=== PATIENT | male | born 1975 | race Caucasian/White ===

== ENCOUNTER 2023-10-03 17:25 | Observation (INO) ==
--- NOTE | 2023-10-03 17:33 | ED Triage Note ---
Date of Service October 03, 2023 Provider in Triage Author: Sari Danielle History of Present Illness This patient was briefly evaluated while in triage. An abbreviated physical exam was performed. This patient is a 47-year-old Male who presents to the ED for evaluation of "I have a pain in the center of my chest, right above my breast bone." Started this morning, went away in the afternoon. Was more dull. Worsened while walking the dog this afternoon "pretty significantly." Does have history of HLD, +family history of PR in father at age 55. Physical Exam VITALS: Vitals are noted on the nurse's note and reviewed by myself. GENERAL: This is a 47 year old male, in no acute distress, nondiaphoretic, well- developed well-nourished. SKIN: No obvious rashes, edema, erythema HEAD: Normocephalic atraumatic. EYES: Conjunctivae without injection, sclerae without icterus. NECK: No JVD. LUNGS: No retractions or accessory muscle use. MUSCULOSKELETAL: Normal gait. NEURO: Patient was alert and oriented to person place and time. No focal neurological deficits. Initial orders for labs and / or imaging were placed and patient was placed in the waiting area until a bed is available. Please see further documentation for the full ED course.
[2023-10-03 18:04] LABS: Basophils # (auto) 0.05 K/uL (0.00-0.20); Basophils % (auto) 0.6 %; Eosinophils # (auto) 0.19 K/uL (0.00-0.50); Eosinophils % (auto) 2.3 %; Hematocrit (blood only) 43.9 % (42.0-52.0); Hemoglobin 14.6 g/dl (14.0-18.0); Immature Granulocytes # (auto) 0.03 K/uL (0.01-0.20); Immature Granulocytes % (auto) 0.4 %; Lymphocytes # (auto) 1.43 K/uL (1.20-3.40); Lymphocytes % (auto) 17.4 %; Mean Corpuscular Hemoglobin 29.1 pg (25.0-34.0); Mean Corpuscular Hgb Conc 33.3 g/dL (32.0-36.0); Mean Corpuscular Volume 87.6 fL (80.0-100.0); Mean Platelet Volume 9.8 fL (9.4-12.4); Monocytes # (auto) 0.61 K/uL (0.11-0.59); Monocytes % (auto) 7.4 %; Neutrophils # (auto) 5.91 K/uL (1.40-6.50); Neutrophils % (auto) 71.9 %; Platelet Count 279 K/uL (130-400); RDW Coefficient of Variation 12.1 % (11.5-14.5); RDW Standard Deviation 38.5 fL (36.4-46.3); Red Blood Count 5.01 M/uL (4.70-6.10); White Blood Count 8.22 K/ul (4.8-10.8)
--- NOTE | 2023-10-03 18:23 | XRay Report ---
SINGLE VIEW CHEST CLINICAL HISTORY: Atypical chest pain FINDINGS: A PA chest radiograph is compared to study dated 09/12/2018. The cardiomediastinal silhouett e is unremarkable. The lungs and pleural spaces are clear. No pneumothorax is seen. The bony thorax i s grossly intact. IMPRESSION: No active disease in the chest. ACT 112: Negative or not required by law. Electronically signed by: Jim Gutierrez M.D. 10/03/2023 6:22 PM
[2023-10-03 18:28] LABS: INR 0.9 (0.9-1.1); Partial Thromboplastin Time 28 Seconds (21-31); Prothrombin Time 10.3 Seconds (9.0-12.0)
[2023-10-03 18:35] LABS: Alanine Aminotransferase 25 U/L (7-52); Albumin Globulin Ratio 1.5 (0.9-2); Albumin Level 4.3 gm/dl (3.4-5.0); Alkaline Phosphatase 76 U/L (34-104); Anion Gap 2 (3-11); Aspartate Aminotransferase 22 U/L (13-39); BUN Creatinine Ratio 10.7 (10-20); Bilirubin,Total 0.5 mg/dl (0.2-1.0); Blood Urea Nitrogen 12 mg/dl (6-23); Calcium 8.8 mg/dl (8.6-10.3); Carbon Dioxide 28 mmol/L (21-32); Chloride 106 mmol/L (98-107); Est GFR (African American) 90.2 ml/min; Est GFR (Non-African American) 77.8 ml/min; Globulin 2.8 gm/dl (2.5-4.0); Glucose 96 mg/dl (70-99(Fasting)); Lipase 14 U/L (11-82); Potassium 3.7 mmol/L (3.5-5.1); Sodium 136 mmol/L (136-145); Total Protein 7.1 gm/dl (6.0-8.3)
[2023-10-03 18:43] LABS: Troponin I High Sensitivity < 2.3 pg/ml (0-20)
[2023-10-03] MEDS: ASPIRIN CHEW 324 MG ONE (20:15)
[2023-10-03] MEDS: ASPIRIN CHEW 324 MG PO STA (20:15)
[2023-10-03] MEDS: SODIUM CHLORIDE 0.9% 1,000 ML IV STA (20:16)
--- NOTE | 2023-10-03 20:16 | Emergency Department Note ---
Impression & Plan Atypical chest pain, ST segment depression ED Provider Note NAME: LISSA NESBITT AGE: 47 SEX: M : 1975 ARRIVES VIA: Walk-In INFORMANT: Patient, ED PROVIDER(S): José Scherer MD CHIEF COMPLAINT: Chest pain MEDICAL DECISION MAKING: Patient presents due to concern for chest pain that occurred earlier today improved and then worsened with exertion while walking the dog. IV was established and blood work was obtained. Patient was initially seen in the waiting area as there were no beds in which the patient will be seen. Patient's blood work shows a normal white count H&H and platelet count. Kidney function is unremarkable with normal electrolytes and LFTs. Troponin is not detectable patient's EKG may have some subtle changes including some ST depressions in the lateral leads as well as inferiorly which appear new from comparison from September 12, 2018. No other priors for comparison. The patient also relates that his father had a prior WY in his 50s and given that he is 47 do believe that it warrants additional monitoring observation and possible stress echocardiogram in the morning. Patient is currently agreeable plan of care. I did speak with the on-call hospitalist and the patient was admitted to the medicine service. Patient was ordered a heparin drip. Critical Care: I have personally spent 35 minutes of critical care time in direct management of this patient. This includes bedside care, interpretation of diagnostic studies, and testing, discussion with consultants, patient, and family members, and other require inpatient management activities. This 35 minutes is in excess of all separately billable procedures. Discussion w/ other healthcare providers: None Prior /Outside records reviewed: None Differential diagnosis: Cardiac ischemia, aortic dissection, pulmonary embolism, pneumothorax, pneumonia, pericarditis, myocarditis, GERD, cholecystitis, pancreatitis, musculoskeletal, as well as other pathologies were considered. Diagnostics, as interpreted by me: ECG: Sinus bradycardia, rate 58, normal intervals, normal axis, ST depressions in the anterolateral and inferior leads. No ST elevations at this time. Cardiac monitoring: An order was placed for continuous cardiac monitoring. The monitor shows a rate of 62 with sinus rhythm. Patient was placed on pulse oximetry Medical decision rules: Heart score, Wells score Imaging studies: I informally interpreted the patient's chest x-ray does not show obvious pneumonia or pneumothorax with formal report to follow. HPI: Patient presents due to concern for chest pain. Patient states it was a dull pain that he noticed around 7-8 o'clock this morning after he awoke. The patient states it did not wake him from sleep. Patient states that it did eventually subside. He did have some dental work done today but this preceded it was still present afterward. Patient states seem to resolve while at work during the day but when he got home he went to walk the dog and had worsening exertional chest pain. Patient denies any radiation and no nausea vomiting or diaphoresis. His father did have an WY at 50. Patient denies any prior history of known CAD or lung disease. No infectious symptoms cough or fever. Patient denies any leg swelling or calf pain. No recent surgeries procedures or hospitalizations no recent prolonged car or plane travel and the patient denies any history of DVT or PE. Patient did not take anything for symptoms at home. PAST MEDICAL HISTORY: See Below PAST SURGICAL HISTORY: See Below SOCIAL HISTORY: See Below HOME MEDICATIONS: See Below ALLERGIES: See Below VITALS: See Below PHYSICAL EXAMINATION: GENERAL: NAD, non-toxic. EYE EXAM: Normal conjunctiva. PERRL, no anisocoria and EOM's grossly intact w/o pain. OROPHARYNX: Moist mucus membranes, grossly normal dentition. NECK: Trachea midline, no stridor. LUNGS: Clear to auscultation. Normal chest wall mechanics. HEART: NSR, no MRG. ABDOMEN: Abdomen soft, non-tender, no masses, no rebound or guarding. BACK: No CVA TTP. SKIN: No rashes and no bruising. UPPER EXTREMITIES: Upper extremities are grossly normal. LOWER EXTREMITIES: Grossly normal, no edema. Negative Homans' sign bilaterally. NEURO EXAM: A&O x3, cranial nerves II-XII grossly intact, normal speech, moves all 4 extremities. Past Med/Surg History Medical History Dyslipidemia Surgical History No significant past surgical history Social History Smoking Status: Unknown if ever smoked Preferred Language: Occitan Feels Safe at Home: Yes Allergies Allergies Allergy/AdvReac Type Severity Reaction Status Date / Time No Known Allergies Allergy Mild Unverified 04/08/18 08:31 Home Meds Home Medications Medication Instructions Recorded Confirmed aspirin 81 mg tablet,delayed 81 mg PO DAILY 04/08/18 04/08/18 release ezetimibe 10 mg tablet (Zetia) 10 mg PO DAILY 04/08/18 04/08/18 omega 5-wzx-xrd-fish oil 1,000 mg 1 tab PO DAILY 04/08/18 04/08/18 (120 mg-180 mg) capsule (Fish Oil) rosuvastatin 5 mg tablet (Crestor) 5 mg PO DAILY 04/08/18 04/08/18 Results & Data (ED) Vital Signs Vital Signs - 24 hr 10/03/23 17:32 10/03/23 21:02 10/03/23 21:14 Temperature 36.5 C Temperature Source Temporal Artery Scan Pulse Rate 71 66 Pulse Rate [Apical] 65 Respiratory Rate 19 20 Respiratory Effort / Characteristics Non-Labored Spontaneous Non-Labored Respiratory Depth Normal Normal Respiratory Pattern Regular Blood Pressure 145/78 H Blood Pressure [Right Arm] 144/98 H Blood Pressure Mean 100 Blood Pressure Mean [Right Arm] 113 Pulse Oximetry 97 100 Oxygen Delivery Method Room Air Room Air Sepsis Recent Fever Within 48 Hours No Sepsis New/Unexplained Change in Mental Status N/A Sepsis Action Taken by Nursing No Action Required Home Medications Current Medication List: was personally reviewed by me Laboratory Data Attestation: I reviewed the patient's lab results. 10/03/23 17:49 10/03/23 17:49 Lab Results 10/03/23 10/03/23 Range/Units 17:49 21:10 WBC 8.22 (4.8-10.8) K/ul RBC 5.01 (4.70-6.10) M/uL Hgb 14.6 (14.0-18.0) g/dl Hct 43.9 (42.0-52.0) % MCV 87.6 (80.0-100.0) fL MCH 29.1 (25.0-34.0) pg MCHC 33.3 (32.0-36.0) g/dL RDW Std Deviation 38.5 (36.4-46.3) fL RDW Coeff of Lluvia 12.1 (11.5-14.5) % Plt Count 279 (130-400) K/uL MPV 9.8 (9.4-12.4) fL Immature Gran % (Auto) 0.4 % Neut % (Auto) 71.9 % Lymph % (Auto) 17.4 % [place] % (Auto) 7.4 % Eos % (Auto) 2.3 % Baso % (Auto) 0.6 % Neut # (Auto) 5.91 (1.40-6.50) K/uL Lymph # (Auto) 1.43 (1.20-3.40) K/uL [place] # (Auto) 0.61 H (0.11-0.59) K/uL Eos # (Auto) 0.19 (0.00-0.50) K/uL Baso # (Auto) 0.05 (0.00-0.20) K/uL Immature Gran # (Auto) 0.03 (0.01-0.20) K/uL PT 10.3 (9.0-12.0) Seconds INR 0.9 (0.9-1.1) APTT 28 (21-31) Seconds PTT Ratio 1.0 Sodium 136 (136-145) mmol/L Potassium 3.7 (3.5-5.1) mmol/L Chloride 106 (98-107) mmol/L Carbon Dioxide 28 (21-32) mmol/L Anion Gap 2 L (3-11) BUN 12 (6-23) mg/dl Creatinine 1.12 (0.6-1.4) mg/dl Est Cr Clr Drug Dosing Not Reportable Est GFR ( Amer) 90.2 ml/min Est GFR (Non-Af Amer) 77.8 ml/min BUN/Creatinine Ratio 10.7 (10-20) Glucose 96 (70-99(Fasting)) mg/dl Calcium 8.8 (8.6-10.3) mg/dl Total Bilirubin 0.5 (0.2-1.0) mg/dl AST 22 (13-39) U/L ALT 25 (7-52) U/L Alkaline Phosphatase 76 (34-104) U/L Troponin I High Sens < 2.3 2.6 (0-20) pg/ml Total Protein 7.1 (6.0-8.3) gm/dl Albumin 4.3 (3.4-5.0) gm/dl Globulin 2.8 (2.5-4.0) gm/dl Albumin/Globulin Ratio 1.5 (0.9-2) Lipase 14 (11-82) U/L Administered Medications Potassium Chloride/Sodium Chloride (Normal Saline W/20 Meq Kcl) 20 meq in 1,000 mls @ 80 mls/hr IV .[id number] [facility]; Protocol Stop: 11/02/23 21:29 Last Admin: 10/03/23 21:42 Dose: 80 mls/hr Documented By: LESTER Nitroglycerin (Nitroglycerin 2% Ointment 30gm Tube) 1 inch EXT Q6H EL Stop: 11/02/23 21:29 Last Admin: 10/03/23 21:43 Dose: 1 inch Documented By: LESTER Discontinued Medications Aspirin (Aspirin Chew 324 Mg) 324 mg PO NOW STA Stop: 10/03/23 17:34 Last Admin: 10/03/23 20:15 Dose: 324 mg Documented By: STEPHON Aspirin (Aspirin Chew 324 Mg) Confirm Administered Dose 324 mg .ROUTE .STK-MED ONE Stop: 10/03/23 20:13 Last Admin: 10/03/23 20:15 Dose: Not Given Documented By: STEPHON Sodium Chloride (Nss) 1,000 mls @ 999 mls/hr IV .Q1H1M STA Stop: 10/03/23 18:33 Last Admin: 10/03/23 20:16 Dose: 999 mls/hr Documented By: STEPHON Imaging Data Radiologist's Impression: Chest X-Ray 10/03/23 17:33 SINGLE VIEW CHEST CLINICAL HISTORY: Atypical chest pain FINDINGS: A PA chest radiograph is compared to study dated 09/12/2018. The cardiomediastinal silhouette is unremarkable. The lungs and pleural spaces are clear. No pneumothorax is seen. The bony thorax is grossly intact. IMPRESSION: No active disease in the chest. ACT 112: Negative or not required by law. Electronically signed by: Jim Gutierrez M.D. 10/03/2023 6:22 PM Discharge Plan Visit Data Chief Complaint: Chest Pain Stated Complaint: DULL CHEST PAIN IN CENTER CHEST ED Provider: José Scherer Discharge Problem: Atypical chest pain, ST segment depression Patient Disposition: Admitted As Inpatient Discharge Instructions Interventions: ED Discharge Assessment Last Done: 10/03/23 21:41
--- NOTE | 2023-10-03 21:27 | History & Physical Report ---
Date of Service October 03, 2023 Assessment & Plan (1) ST segment depression: (2) Atypical chest pain: (3) Dyslipidemia: (4) Family history of heart disease in male family member before age 55: Plan Chest pain/ST depressions inferiorly/family history of premature coronary artery disease- The patient will be admitted to telemetry for serial cardiac enzymes, serial EKG's, cardiac rhythm monitoring and a 2-D echocardiogram with Dopplers. Initial troponin negative Status post 1 L normal saline in the ED and aspirin 324 mg chewable Aspirin 81 mg every morning Nitropaste 1 inch to anterior chest wall every 6 hours Heparin drip standard dose with bolus per protocol Heart rate in the low to mid 60s, so not a candidate for beta-blockers Consult cardiology Dyslipidemia- Continue Zetia and rosuvastatin Check a fasting lipid panel History of Present Illness Chief Complaint: The patient presented emergency department with complaint of substernal chest pain that happened early in the day today, improved during the day, and then worsened with exertion, later on the evening while walking his dog. With the recurrence of the pain this evening, and due to family history of his father having an UT with 4 stents in his early 50s, he presents to the ED for assessment. Primary Care Provider: Taurus Lester Jr, DO The patient is a 47-year-old male with a past medical history including hyperlipidemia and family history of early UT in his father. He presents emergency department with complaint of chest pain that began earlier in the day today, resolved during the day, and then recurred this evening while walking his dog. Upon presentation to the emergency department, the patient had the persistence of some of the chest discomfort, but had improved significantly from earlier this evening. EKG showed ST depressions in the inferior leads, and after having been given aspirin 325 mg, patient was placed on Nitropaste 1 inch, and heparin drip, admitted to the PCU for further evaluation Allergies Allergy/AdvReac Type Severity Reaction Status Date / Time No Known Allergies Allergy Mild Unverified 04/08/18 08:31 Home Medications Medication Instructions Recorded Confirmed Type aspirin 81 mg tablet,delayed 81 mg PO DAILY 04/08/18 04/08/18 History release ezetimibe 10 mg tablet (Zetia) 10 mg PO DAILY 04/08/18 04/08/18 History omega 6-uao-mjw-fish oil 1,000 mg 1 tab PO DAILY 04/08/18 04/08/18 History (120 mg-180 mg) capsule (Fish Oil) rosuvastatin 5 mg tablet (Crestor) 5 mg PO DAILY 04/08/18 04/08/18 History Past Med/Surg History Medical History Dyslipidemia Surgical History No significant past surgical history Social History Smoking Status: Never smoker Second Hand Exposure: No; Do You Dip or Chew Tobacco: No; Hx Alcohol Use: Yes Alcohol type: hard liquor Hx Substance Use: No Preferred Language: Kazakh Communication Ability: Effective 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 Beliefs That Will Affect Care: None Current Living Situation: Spouse Other Information That Helps Us Care for You: No Feels Safe at Home: Yes Safety Concerns: Feels Safe At This Time Assistive Devices: Glasses Review of Systems Review of Systems: The patient denies palpitations, cough, lower extremity swelling, sore throat, fevers, chills, sweats, fatigue, nausea, vomiting, diarrhea , constipation, abdominal pain, pelvic pain, blood in urine or stool, dysuria, urinary frequency or urgency, lightheadedness, dizziness, headache, memory loss, loss of consciousness, rash, abnormal bruising or bleeding, imbalance, focal or generalized weakness, numbness or tingling in arms or legs, generalized arthralgias or myalgias, back or neck pain, or night sweats. The review of systems is otherwise negative other than for that already noted above, and at least 10 systems have been reviewed. Physical Exam Physical Exam: The patient is awake, alert and oriented 3, well developed and well nourished, normocephalic and atraumatic, lying in bed and in no acute distress. HEENT--PERRL, EOMI, mucous membranes and oropharynx dry. Neck--supple. No JVD. No bruits. Thyroid normal, trachea midline, no adenopathy. Heart--normal S1 and S2. No murmurs, rubs or gallops. Lungs--clear bilaterally, no respiratory distress, no accessory muscle use. Abdomen--normal bowel sounds and soft. Nontender. Nondistended, no hernias or masses, no organomegaly. Extremities--no cyanosis or clubbing. No edema. There are good distal pulses b/l . Dermatologic--normal skin turgor, normal color, no abnormal lymph nodes, no rash. Neurologic--cranial nerves II through XII grossly intact. Rheumatologic--normal range of motion. Psychiatric--normal affect. Results & Data Results & Data Vital Signs (Past 12 Hours) Vital Signs Temp Pulse Pulse Resp BP BP Pulse Ox 10/03/23 21:14 65 20 144/98 H 100 10/03/23 21:02 66 10/03/23 17:32 36.5 C 71 19 145/78 H 97 O2 Del Method 10/03/23 21:14 Room Air 10/03/23 21:02 10/03/23 17:32 Room Air Laboratory Results Laboratory Results WBC 8.22 K/ul (4.8-10.8) 10/03/23 17:49 RBC 5.01 M/uL (4.70-6.10) 10/03/23 17:49 Hgb 14.6 g/dl (14.0-18.0) 10/03/23 17:49 Hct 43.9 % (42.0-52.0) 10/03/23 17:49 MCV 87.6 fL (80.0-100.0) 10/03/23 17:49 MCH 29.1 pg (25.0-34.0) 10/03/23 17:49 MCHC 33.3 g/dL (32.0-36.0) 10/03/23 17:49 RDW Std Deviation 38.5 fL (36.4-46.3) 10/03/23 17:49 RDW Coeff of Lluvia 12.1 % (11.5-14.5) 10/03/23 17:49 Plt Count 279 K/uL (130-400) 10/03/23 17:49 MPV 9.8 fL (9.4-12.4) 10/03/23 17:49 Immature Gran % (Auto) 0.4 % 10/03/23 17:49 Neut % (Auto) 71.9 % 10/03/23 17:49 Lymph % (Auto) 17.4 % 10/03/23 17:49 [place] % (Auto) 7.4 % 10/03/23 17:49 Eos % (Auto) 2.3 % 10/03/23 17:49 Baso % (Auto) 0.6 % 10/03/23 17:49 Neut # (Auto) 5.91 K/uL (1.40-6.50) 10/03/23 17:49 Lymph # (Auto) 1.43 K/uL (1.20-3.40) 10/03/23 17:49 [place] # (Auto) 0.61 K/uL (0.11-0.59) H 10/03/23 17:49 Eos # (Auto) 0.19 K/uL (0.00-0.50) 10/03/23 17:49 Baso # (Auto) 0.05 K/uL (0.00-0.20) 10/03/23 17:49 Immature Gran # (Auto) 0.03 K/uL (0.01-0.20) 10/03/23 17:49 PT 10.3 Seconds (9.0-12.0) 10/03/23 17:49 INR 0.9 (0.9-1.1) 10/03/23 17:49 APTT 28 Seconds (21-31) 10/03/23 17:49 PTT Ratio 1.0 10/03/23 17:49 Sodium 136 mmol/L (136-145) 10/03/23 17:49 Potassium 3.7 mmol/L (3.5-5.1) 10/03/23 17:49 Chloride 106 mmol/L (98-107) 10/03/23 17:49 Carbon Dioxide 28 mmol/L (21-32) 10/03/23 17:49 Anion Gap 2 (3-11) L 10/03/23 17:49 BUN 12 mg/dl (6-23) 10/03/23 17:49 Creatinine 1.12 mg/dl (0.6-1.4) 10/03/23 17:49 Est Cr Clr Drug Dosing Not Reportable 10/03/23 17:49 Est GFR ( Amer) 90.2 ml/min 10/03/23 17:49 Est GFR (Non-Af Amer) 77.8 ml/min 10/03/23 17:49 BUN/Creatinine Ratio 10.7 (10-20) 10/03/23 17:49 Glucose 96 mg/dl (70-99(Fasting)) 10/03/23 17:49 Calcium 8.8 mg/dl (8.6-10.3) 10/03/23 17:49 Total Bilirubin 0.5 mg/dl (0.2-1.0) 10/03/23 17:49 AST 22 U/L (13-39) 10/03/23 17:49 ALT 25 U/L (7-52) 10/03/23 17:49 Alkaline Phosphatase 76 U/L (34-104) 10/03/23 17:49 Troponin I High Sens 2.4 pg/ml (0-20) 10/03/23 23:22 Total Protein 7.1 gm/dl (6.0-8.3) 10/03/23 17:49 Albumin 4.3 gm/dl (3.4-5.0) 10/03/23 17:49 Globulin 2.8 gm/dl (2.5-4.0) 10/03/23 17:49 Albumin/Globulin Ratio 1.5 (0.9-2) 10/03/23 17:49 Lipase 14 U/L (11-82) 10/03/23 17:49 Impressions Chest X-Ray 10/03/23 17:33 SINGLE VIEW CHEST CLINICAL HISTORY: Atypical chest pain FINDINGS: A PA chest radiograph is compared to study dated 09/12/2018. The cardiomediastinal silhouette is unremarkable. The lungs and pleural spaces are clear. No pneumothorax is seen. The bony thorax is grossly intact. IMPRESSION: No active disease in the chest. ACT 112: Negative or not required by law. Electronically signed by: Jim Gutierrez M.D. 10/03/2023 6:22 PM Code Status & VTE Plan Code Status Full code VTE Prophylaxis Plan VTE Prophylaxis will be ordered: Yes PG Care Time/CCT Total # of Minutes Spent Total Time Spent with Patient: Total time spent is greater than 50% in coordination of care (as documented) at patient's floor/unit and/or counseling patient: Coding Level of Care Code 62665 INT INP/OBS CARE 3/75MIN Diagnoses ST segment depression R94.31 Atypical chest pain R07.89 Dyslipidemia E78.5 Family history of heart disease in male family member before age 55 Z82.49
[2023-10-03] MEDS ORDERED: ACETAMINOPHEN 325 MG TAB PO PRN (21:41)
[2023-10-03] MEDS ORDERED: ONDANSETRON INJ 2 MG/ML 2 ML VIAL IV PRN (21:41)
[2023-10-03] MEDS: NSS + 20MEQ KCL 20 MEQ/1,000 ML BAG IV SCH (21:42)
[2023-10-03] MEDS: NITROGLYCERIN 2% OINTMENT 30GM TUBE EXT SCH (21:43)
[2023-10-03] MEDS: HEPARIN SODIUM/DEXTROSE 25,000 UNITS/500 ML BAG IV SCH (22:18)
[2023-10-03] MEDS: HEPARIN SOD (PORCINE) 1000 UNIT/ML IV ONE (22:18)
[2023-10-04] MEDS: Heparin IV Adult Wt-Based Standard w/ INITIAL Bolus Protocol IV STA (03:21)
[2023-10-04 05:15] LABS: Basophils # (auto) 0.04 K/uL (0.00-0.20); Basophils % (auto) 0.5 %; Eosinophils % (auto) 3.5 %; Hematocrit (blood only) 39.4 % (42.0-52.0); Hemoglobin 13.3 g/dl (14.0-18.0); Immature Granulocytes # (auto) 0.02 K/uL (0.01-0.20); Immature Granulocytes % (auto) 0.2 %; Lymphocytes # (auto) 1.81 K/uL (1.20-3.40); Lymphocytes % (auto) 20.9 %; Mean Corpuscular Hemoglobin 29.2 pg (25.0-34.0); Mean Corpuscular Hgb Conc 33.8 g/dL (32.0-36.0); Mean Corpuscular Volume 86.6 fL (80.0-100.0); Mean Platelet Volume 10.1 fL (9.4-12.4); Monocytes # (auto) 0.73 K/uL (0.11-0.59); Monocytes % (auto) 8.4 %; Neutrophils # (auto) 5.75 K/uL (1.40-6.50); Neutrophils % (auto) 66.5 %; Platelet Count 260 K/uL (130-400); RDW Coefficient of Variation 12.1 % (11.5-14.5); RDW Standard Deviation 38.3 fL (36.4-46.3); Red Blood Count 4.55 M/uL (4.70-6.10); White Blood Count 8.65 K/ul (4.8-10.8)
[2023-10-04 05:29] LABS: Albumin Level 3.7 gm/dl (3.4-5.0); BUN Creatinine Ratio 11.7 (10-20); Calcium 8.2 mg/dl (8.6-10.3); Creatinine Clr Calc Pharmacy 106.3 ml/min; Est GFR (African American) 111.5 ml/min; Est GFR (Non-African American) 96.2 ml/min; Magnesium 2.1 mg/dl (1.7-2.4); Phosphorus 3.4 mg/dl (2.5-4.9); Potassium 3.8 mmol/L (3.5-5.1)
[2023-10-04 05:35] LABS: Troponin I High Sensitivity 2.8 pg/ml (0-20)
[2023-10-04 06:40] LABS: ANTI-Xa, UFH(UnfractionatedHep 0.81 IU/ml (0.3-0.7)
[2023-10-04 07:37] LABS: Chol HDL Ratio 3.5 (0-5)
[2023-10-04] MEDS: ASPIRIN 81 MG ECTAB PO SCH (09:01)
[2023-10-04] MEDS: ROSUVASTATIN CALCIUM 5 MG TAB PO SCH (09:01)
[2023-10-04] MEDS: EZETIMIBE 10 MG TAB PO SCH (09:01)
[2023-10-04 10:43] LABS: ANTI-Xa, UFH(UnfractionatedHep 0.52 IU/ml (0.3-0.7)
--- NOTE | 2023-10-04 11:04 | XCELERA ---
[id number] \\[id number]
--- NOTE | 2023-10-04 11:59 | Cardiology Consultation ---
Date of Consultation October 04, 2023 Assessment & Plan (1) Atypical chest pain: (2) Dyslipidemia: Plan 1. Chest pain: While the character of his symptoms are concerning, he did have an extended episode of chest pain without any elevation in his cardiac biomarkers. This was suggest that his current symptoms were not related to cardiac ischemia. This is in the setting of a relatively normal EKG and normal echocardiogram. However, he did have some exertional symptoms and he has a family history of premature coronary disease. I think is reasonable perform some provocative testing. We will arrange for a stress echocardiogram. If that is normal he can certainly be discharged with continued aggressive risk factor modification. 2. Hyperlipidemia: Lipid profile obtained this morning looks quite favorable. Would seem reasonable to continue him on his current dose of rosuvastatin and ezetimibe. History of Present Illness Reason for Consultation: Chest pain Requesting Physician: Nicholas Attending Physician: Taurus Noriega MD History of Present Illness The patient is a 47-year-old gentleman with a history of hyperlipidemia who presented to the emergency room due to symptoms of chest discomfort. Patient states that he awoke yesterday morning with a pressure type sensation in the xiphoid area. This is fairly well localized not radiate to the arms, precordium, neck or back. The symptoms were fairly persistent for a few hours. It seemed to wax and wane in severity but was not worse with any change in position. He did not try any particular remedies at home to fix the situation but the symptoms appear to have gradually resolved over a few hours. He went to walk his dogs he does 3 times daily and on initiation of walking he felt like to symptoms return. He therefore presented to the emergency room for evaluation. He states that his symptoms were present on arrival and have persisted throughout his hospitalization to some degree. He cannot recall any specific intervention which improved his symptoms. In general he is an active individual. He does scuba diving for recreation and walks his dog 3 times daily. He states are some steep hills on the walk. He has some mild dyspnea when at ascending hills but no symptoms of chest discomfort. No similar symptoms when walking his dog. He did not endorse symptoms of dizziness or lightheadedness. He has not noticed any palpitations. No history of syncope. No orthopnea. No lower extremity edema. He did report a similar symptom of chest discomfort approximately 2 weeks ago which also occurred at rest and lasted for an hour or 2. Allergies Allergy/AdvReac Type Severity Reaction Status Date / Time No Known Allergies Allergy Mild Unverified 04/08/18 08:31 Home Medications Medication Instructions Recorded Confirmed Type aspirin 81 mg tablet,delayed 81 mg PO DAILY 04/08/18 04/08/18 History release ezetimibe 10 mg tablet (Zetia) 10 mg PO DAILY 04/08/18 04/08/18 History omega 9-vyr-gvo-fish oil 1,000 mg 1 tab PO DAILY 04/08/18 04/08/18 History (120 mg-180 mg) capsule (Fish Oil) rosuvastatin 5 mg tablet (Crestor) 5 mg PO DAILY 04/08/18 04/08/18 History Patient History Medical History Dyslipidemia Surgical History No significant past surgical history Social History Smoking Status: Never smoker Second Hand Exposure: No; Do You Dip or Chew Tobacco: No; Hx Alcohol Use: Yes Alcohol type: hard liquor Hx Substance Use: No Preferred Language: Hebrew Communication Ability: Effective Sheep Farmer Required: No Beliefs That Will Affect Care: None Current Living Situation: Spouse Other Information That Helps Us Care for You: No Feels Safe at Home: Yes Safety Concerns: Feels Safe At This Time Assistive Devices: None Review of Systems Review of Systems: Per HPI Physical Exam Physical Exam: The patient is alert and oriented. Mood and affect appeared normal. He answered all questions appropriately. HEENT: Pupils are equal and reactive to light and accommodation. Extraocular movements are intact. The sclerae are anicteric. Neuro: Cranial nerves intact Neck: Patient's neck is supple. He has palpable carotid pulses bilaterally without bruits on auscultation. There is no evidence of jugular venous distention. The thyroid is not enlarged. Lungs: Clear to auscultation bilaterally. He has good air movement without use of accessory muscles. No rales wheezes or rhonchi. Cardiac: Heart demonstrates a regular rate and rhythm. Normal S1 and S2. No murmurs on examination. Pulses: The patient has palpable radial pulses bilaterally that are equal in intensity Extremities: There was no evidence of hypoperfusion. There is no cyanosis or clubbing. There is no edema. Skin: I did not appreciate any rashes on examination today. Results & Data Vital Signs (Past 12 Hours) Vital Signs Temp Pulse Pulse Resp BP Pulse Ox O2 Del Method 10/04/23 10:43 36.9 C 52 L 16 107/60 95 Room Air 10/04/23 07:49 36.6 C 62 16 109/64 97 Room Air 10/04/23 07:31 47 L 10/04/23 02:48 36.4 C L 55 L 16 104/64 96 Room Air Laboratory Results Abnormal Lab Results 10/03/23 10/03/23 10/03/23 17:49 21:10 23:22 WBC 8.22 RBC 5.01 Hgb 14.6 Hct 43.9 MCV 87.6 MCH 29.1 MCHC 33.3 RDW Std Deviation 38.5 RDW Coeff of Lluvia 12.1 Plt Count 279 MPV 9.8 Immature Gran % (Auto) 0.4 Neut % (Auto) 71.9 Lymph % (Auto) 17.4 Tyrrell % (Auto) 7.4 Eos % (Auto) 2.3 Baso % (Auto) 0.6 Neut # (Auto) 5.91 Lymph # (Auto) 1.43 Tyrrell # (Auto) 0.61 H Eos # (Auto) 0.19 Baso # (Auto) 0.05 Immature Gran # (Auto) 0.03 PT 10.3 INR 0.9 APTT 28 PTT Ratio 1.0 Heparin Anti-Xa, Unfract Sodium 136 Potassium 3.7 Chloride 106 Carbon Dioxide 28 Anion Gap 2 L BUN 12 Creatinine 1.12 Est Cr Clr Drug Dosing Not Reportable Est GFR ( Amer) 90.2 Est GFR (Non-Af Amer) 77.8 BUN/Creatinine Ratio 10.7 Glucose 96 Calcium 8.8 Phosphorus Magnesium Total Bilirubin 0.5 AST 22 ALT 25 Alkaline Phosphatase 76 Troponin I High Sens < 2.3 2.6 2.4 Total Protein 7.1 Albumin 4.3 Globulin 2.8 Albumin/Globulin Ratio 1.5 Triglycerides Cholesterol LDL Cholesterol, Calc VLDL Cholesterol, Calc HDL Cholesterol Cholesterol/HDL Ratio Lipase 14 10/04/23 10/04/23 10/04/23 04:13 06:43 10:05 WBC 8.65 RBC 4.55 L Hgb 13.3 L Hct 39.4 L MCV 86.6 MCH 29.2 MCHC 33.8 RDW Std Deviation 38.3 RDW Coeff of Lluvia 12.1 Plt Count 260 MPV 10.1 Immature Gran % (Auto) 0.2 Neut % (Auto) 66.5 Lymph % (Auto) 20.9 Tyrrell % (Auto) 8.4 Eos % (Auto) 3.5 Baso % (Auto) 0.5 Neut # (Auto) 5.75 Lymph # (Auto) 1.81 Tyrrell # (Auto) 0.73 H Eos # (Auto) 0.30 Baso # (Auto) 0.04 Immature Gran # (Auto) 0.02 PT INR APTT PTT Ratio Heparin Anti-Xa, Unfract 0.81 H* 0.52 Sodium 139 Potassium 3.8 Chloride 107 Carbon Dioxide 26 Anion Gap 6 BUN 11 Creatinine 0.94 Est Cr Clr Drug Dosing 106.3 Est GFR ( Amer) 111.5 Est GFR (Non-Af Amer) 96.2 BUN/Creatinine Ratio 11.7 Glucose 101 H Calcium 8.2 L Phosphorus 3.4 Magnesium 2.1 Total Bilirubin AST ALT Alkaline Phosphatase Troponin I High Sens 2.8 3.1 Total Protein Albumin 3.7 Globulin Albumin/Globulin Ratio Triglycerides 117 Cholesterol 131 LDL Cholesterol, Calc 71 VLDL Cholesterol, Calc 23 HDL Cholesterol 37 Cholesterol/HDL Ratio 3.5 Lipase Diagnostic Findings Echocardiogram performed 10/04/2023: Normal LV systolic function without valvular heart disease. Chest x-ray obtained the time admission not reveal any acute cardiopulmonary process. ECG Additional Comments: Normal sinus rhythm with some very minor nonspecific ST and T-wave changes. Unchanged from 2019. PG Care Time/CCT Total # of Minutes Spent Total Time Spent with Patient: Total time spent is greater than 50% in coordination of care (as documented) at patient's floor/unit and/or counseling patient: Coding Level of Care Code 80471 IN/OBS CONSULT LVL 4,60M Diagnoses Atypical chest pain R07.89 Dyslipidemia E78.5
--- NOTE | 2023-10-04 13:24 | Discharge Summary ---
Date of Service October 04, 2023 Admission HPI Per Admitting Provider The patient is a 47-year-old male with a past medical history including hyperlipidemia and family history of early OK in his father. He presents emergency department with complaint of chest pain that began earlier in the day today, resolved during the day, and then recurred this evening while walking his dog. Upon presentation to the emergency department, the patient had the persistence of some of the chest discomfort, but had improved significantly from earlier this evening. EKG showed ST depressions in the inferior leads, and after having been given aspirin 325 mg, patient was placed on Nitropaste 1 inch, and heparin drip, admitted to the PCU for further evaluation Principal Diagnosis Noncardiac chest pain with abnormal EKG Discharge Exam General-alert and oriented x3, no fever, no chills HEENT-head atraumatic and normocephalic, pupils equal and reactive to light, extraocular muscles intact Neck-no lymphadenopathy or thyromegaly, trachea midline Chest-clear to auscultation. No rales, wheezing or rhonchi Cardiac-regular rate and rhythm, normal S1 and S2 Abdomen-normal bowel sounds, nontender, no hepatosplenomegaly Extremities-no cyanosis, clubbing, or edema Neuro-cranial nerves II through XII intact, motor and sensory function within normal limits, strength symmetrical, no focal deficits Psych-normal affect, normal mood Discharge Data Allergies Allergy/AdvReac Type Severity Reaction Status Date / Time No Known Allergies Allergy Mild Unverified 04/08/18 08:31 Consultations 10/03/23 20:20 ED Decision to Admit Stat 10/03/23 21:41 Consult Cardiology Routine Hospital Course (1) ST segment depression: Noted on resting EKG. Troponin series negative x 4 (2) Atypical chest pain: Appreciate cardiology consultation and recommendations. Stress echo was completed this morning, October 03, and negative for ischemia (3) Dyslipidemia: Stable. Continue current medical manage (4) Family history of heart disease in male family member before age 55: Known Plan Home todayOctober 03 Total Time Total Time Spent Total Time Spent (In Minutes): 45 minutes Discharge Plan Discharge Items Patient Disposition: Home - Self-Care Reason For Visit: ACS Discharge Diagnosis: Noncardiac chest pain, abnormal resting EKG Activity: Resume your previous activity Non-emergency contact: Primary Care Provider Call non-emergency contact if: your symptoms worsen Follow-up/Referrals: Maribel Anderson CRNP [Primary Care Provider] - Diet: Regular and Heart Healthy Addtl Attending Provider Instructions: Heart stress test was negative. No new medications ordered Pending Studies at Discharge: No Stand-Alone Forms: My [facility], Smoking Cessation Medications and DC Order Prescriptions: Continued aspirin 81 mg Tablet,Delayed Release (Dr/Ec) 81 mg PO DAILY ezetimibe [Zetia] 10 mg Tablet 10 mg PO DAILY rosuvastatin [Crestor] 5 mg Tablet 5 mg PO DAILY omega 7-izn-dkf-fish oil [Fish Oil] 1,000 mg (120 mg-180 mg) Capsule 1 tab PO DAILY Discharge Orders: Discharge Order (Routine); Ordered 10/04/23 Ordered By: Taurus Noriega Admission Data Admit Date/Time: 10/03/23 21:26 Attending Provider: Taurus Noriega Admit Provider: Steven Peterson Primary Care Provider: Maribel Anderson Other Providers: Steven Peterson; Camden Peacock Coding Level of Care Code 54449 INP/OBS DISCH >[address] segment depression R94.31 Atypical chest pain R07.89 Dyslipidemia E78.5 Family history of heart disease in male family member before age 55 Z82.49
--- NOTE | 2023-10-04 15:42 | Electrocardiogram Report ---
Test Reason : Blood Pressure : / mmHG Vent. Rate : 058 BPM Atrial Rate : 058 BPM P-R Int : 146 ms QRS Dur : 110 ms QT Int : 384 ms P-R-T Axes : 039 034 034 degrees QTc Int : 376 ms Sinus bradycardia Nonspecific ST and T wave abnormality Abnormal ECG When compared with ECG of 12-SEP-2018 03:09, Nonspecific T wave abnormality, worse in Inferior leads Confirmed by Arley Vaca ([id number]) on 10/04/2023 3:42:27 PM Referred By: REFERRED SELF Confirmed By:Octavio Vaca
--- NOTE | 2023-10-04 15:45 | Electrocardiogram Report ---
Test Reason : Blood Pressure : / mmHG Vent. Rate : 054 BPM Atrial Rate : 054 BPM P-R Int : 134 ms QRS Dur : 104 ms QT Int : 410 ms P-R-T Axes : 030 038 021 degrees QTc Int : 388 ms Sinus bradycardia Nonspecific ST abnormality Abnormal ECG When compared with ECG of 03-OCT-2023 17:43, (unconfirmed) No significant change was found Confirmed by Arley Vaca ([id number]) on 10/04/2023 3:45:21 PM Referred By: REFERRED SELF Confirmed By:Octavio Vaca
--- NOTE | 2023-10-04 15:48 | Electrocardiogram Report ---
Test Reason : Blood Pressure : / mmHG Vent. Rate : 054 BPM Atrial Rate : 054 BPM P-R Int : 142 ms QRS Dur : 106 ms QT Int : 432 ms P-R-T Axes : 008 028 003 degrees QTc Int : 409 ms Sinus bradycardia Nonspecific ST abnormality Otherwise normal ECG When compared with ECG of 03-OCT-2023 20:59, (unconfirmed) No significant change was found Confirmed by Arley Vaca ([id number]) on 10/04/2023 3:48:10 PM Referred By: REFERRED SELF Confirmed By:Octavio Vaca
--- NOTE | 2023-10-04 18:23 | XCELERA ---
[id number] \\[id number]
== END 2023-10-04 14:24 | disposition home or self-care (01) ==
LOC: EDINP 17:25 → ED 17:25 → SUATTDRO 21:26 → 2S 21:41